=== PATIENT | male | born 1975 | race Caucasian/White ===

== ENCOUNTER 2019-11-14 15:33 | Emergency (ER) | payer OTHER ==
[~2019-11-14] VITALS: Ht 182.9 cm; Wt 114.3 kg
[2019-11-14 15:41] VITALS: BP 135/96; Ht 182.9 cm; Wt 114.3 kg
== END 2019-11-14 17:24 | disposition home or self-care (01) ==
LOC: ED 15:33
DX: S61.012A Laceration without foreign body of left thumb without damage to nail, initial encounter (principal); W45.8XXA Other foreign body or object entering through skin, initial encounter; Y93.89 Activity, other specified; Y92.89 Other specified places as the place of occurrence of the external cause; Y99.8 Other external cause status
CPT/HCPCS: 90715